=== PATIENT | male | born 1950 | race Caucasian/White ===

== ENCOUNTER 2016-03-24 09:30 | Outpatient (RCR) | payer BC | END 2016-03-31 12:00 | disposition home or self-care (01) | LOC: CR 09:30 | PROVIDERS: ATTEND Family Medicine | DX: I25.118 Atherosclerotic heart disease of native coronary artery with other forms of angina pectoris (principal); Z95.5 Presence of coronary angioplasty implant and graft | CPT/HCPCS: 93798 ==